=== PATIENT | female | born 1955 ===

== ENCOUNTER 2018-05-16 19:02 | Emergency (ER) | payer OTHER ==
[~2018-05-16] VITALS: Ht 157.5 cm; Wt 88.0 kg
[~2018-05-16 19:02] MED LIST: ENALAPRIL MALEAT5 MG; KETO10TA2 PO; OMEPRAZOLE40 MG; TAMS0.4C PO
== END 2018-05-16 21:48 | disposition home or self-care (01) ==
LOC: ER 19:02
DX: S92.351A Displaced fracture of fifth metatarsal bone, right foot, initial encounter for closed fracture (principal); S82.52XA Displaced fracture of medial malleolus of left tibia, initial encounter for closed fracture; W18.39XA Other fall on same level, initial encounter; Y93.89 Activity, other specified; Y92.89 Other specified places as the place of occurrence of the external cause; Y99.8 Other external cause status

== ENCOUNTER 2018-05-22 06:30 | Day surgery (SDC) | payer OTHER ==
[2018-05-22] MEDS ORDERED: PERCOCET 5-3251 EACH PO (16:19)
== END 2018-05-23 09:10 | disposition expired ==
LOC: CIR.AMB 06:30
DX: S82.852A Displaced trimalleolar fracture of left lower leg, initial encounter for closed fracture (principal); I97.89 Other postprocedural complications and disorders of the circulatory system, not elsewhere classified; I47.1 Supraventricular tachycardia